=== PATIENT | male | born 1955 | race Caucasian/White ===

== ENCOUNTER 2024-09-05 14:34 | Inpatient (IN) | payer OTHER, MEDICARE ==
[~2024-09-05] VITALS: Ht 177.8 cm; Wt 99.3 kg
[~2024-09-05 14:34] MED LIST: ALLO100T PO; ASPI-1155 PO; GLIP10TA11 PO; LIP80 PO; LOSA1TAB15 PO; METF1000 PO; METO-306 PO; NAPR250T PO; NIFE-76 PO
[2024-09-05 14:47] VITALS: BP_SYST 162; PULSE 79; RESP 22; TEMP 98.3; O2SAT 98
[2024-09-05] MEDS: DEXTROSE 50% JECT 50 ML DISP.SYRIN IVP ONE ×2 (15:50→22:00)
[2024-09-05 15:52] LABS: BASOPHILS % (AUTO) 0.2 % (0.0-2.0); EOSINOPHILS # (AUTO) 0.5 K/uL (0.0-0.4); EOSINOPHILS % (AUTO) 5.2 % (0.0-4.0); HEMATOCRIT 29.8 % (36-54); HEMOGLOBIN 9.6 g/dL (14.0-18.0); LYMPHOCYTES # (AUTO) 0.9 K/uL (1.0-5.5); LYMPHOCYTES % (AUTO) 9.6 % (20.5-51.5); MEAN CORPUSCULAR HEMOGLOBIN 30 pg (27-31); MEAN CORPUSCULAR HGB CONC 32 % (32-36); MEAN CORPUSCULAR VOLUME 92 fL (79.0-98.0); MONOCYTES # (AUTO) 0.6 K/uL (0.0-1.0); MONOCYTES % (AUTO) 6.5 % (1.7-9.3); NEUTROPHILS # (AUTO) 7.2 K/uL (1.8-7.7); NEUTROPHILS % (AUTO) 78.5 % (40.0-70.0); PLATELET COUNT (AUTO) 184 K/uL (130-430); RED BLOOD CELL COUNT(AUTO) 3.22 MIL/uL (4.2-6.2); RED CELL DISTRIBUTION WIDTH 13.5 % (9.0-15.0); WHITE BLOOD COUNT (AUTO) 9.2 K/uL (4.8-10.8)
[2024-09-05 16:06] LABS: BILIRUBIN,URINE NEGATIVE (NEGATIVE); BLOOD, URINE NEGATIVE (NEGATIVE); COLOR,URINE YELLOW (YELLOW); GLUCOSE,URINE NEGATIVE (NEGATIVE); KETONES,URINE NEGATIVE (NEGATIVE); LEUKOCYTE ESTERASE ,URINE 2+ (NEGATIVE); NITRITE, URINE POSITIVE (NEGATIVE); PROTEIN URINE NEGATIVE (NEGATIVE); UROBILINOGEN,URINE 0.2 (0.2-1.0)
[2024-09-05 16:10] LABS: INR 1.2 (0.80-1.20); PROTHROMBIN TIME 12.7 SECS (9.5-12.5)
[2024-09-05 16:18] LABS: ANION GAP -2 (5-15); CALCIUM 9.6 mg/dL (8.4-11.0); CHLORIDE 98 mmol/L (98-107); CREATINE KINASE, TOTAL 40 U/L (39-308); CREATININE 1.42 mg/dL (0.55-1.30); GFR AFRICAN AMERICAN 64 mL/min (>90); GLUCOSE 61 mg/dL (74-106); POTASSIUM 3.5 mmol/L (3.5-5.1); SODIUM SERUM 141 mmol/L (136-145); UREA NITROGEN, BLOOD 29 mg/dL (8-21)
[2024-09-05 16:22] LABS: GFR NON AFRICAN-AMERICAN 53 mL/min (>90)
[2024-09-05 16:23] LABS: CARBON DIOXIDE 45 mmol/L (23-29)
[2024-09-05] MEDS: FUROSEMIDE 40 MG/4 ML VIAL IVP ONE (17:16)
[2024-09-05 17:26] LABS: BACTERIA,URINE MANY /HPF (None Seen); CLARITY/URINE HAZY (CLEAR); RBC,URINE 0-3 /HPF (0-3); WBC,URINE 20-50 /HPF (0-3)
[2024-09-05 17:28] LABS: MUCUS,URINE None Seen /LPF (None Seen)
[2024-09-05 17:29] LABS: URINE AMORPHOUS URATE 1+ /HPF (None Seen)
[2024-09-05] MEDS: cefTRIAXone 1 GM in D5W 50 ML IV ONE (18:45)
[2024-09-05] MEDS ORDERED: ACETAMINOPHEN 325 MG TABLET PO PRN (19:15)
[2024-09-05] MEDS ORDERED: ONDANSETRON HCL 4 MG/2 ML VIAL IVP PRN (19:15)
[2024-09-05] MEDS ORDERED: cefTRIAXone 1 GM VIAL ONE (19:22)
[2024-09-05] MEDS: DEXTROSE 10%-WATER 500 ML IV SCH (19:45)
[2024-09-05 20:09] LABS: BLOOD GAS PCO2 67.7 mmHg (35.0-48.0); BLOOD GAS PH 7.373 (7.350-7.450)
[2024-09-05 20:10] LABS: ALLEN'S TEST POSITIVE (P); BLOOD GAS BASE EXCESS 11.1 mmol/L (-2.0-3.0); BLOOD GAS HCO3 38.5 mmol/L (21.0-28.0); BLOOD GAS PO2 96.9 mmHg (83.0-108.0)
[2024-09-05] MEDS ORDERED: SITA100T11 PO (20:10)
[2024-09-05] MEDS ORDERED: APIX5TAB PO (20:10)
[2024-09-05] MEDS ORDERED: FURO40TA5 PO (20:10)
[2024-09-05] MEDS ORDERED: LOSA50TA28 PO (20:10)
[2024-09-05] MEDS ORDERED: ROSU20TA73 PO (20:10)
[2024-09-05] MEDS ORDERED: GLIP5TAB26 PO (20:10)
[2024-09-05] MEDS ORDERED: IBUP-1970 PO (20:10)
[2024-09-05 20:11] LABS: FRACTIONATED INSPIRED OXYGEN 0.32 % (0.21-100.00)
[2024-09-05 20:17] VITALS: BP_SYST 148; PULSE 55; O2SAT 99
[2024-09-05] MEDS ORDERED: SOTA120T PO (20:18)
[2024-09-05] MEDS ORDERED: NIFE-129 PO (20:18)
[2024-09-05] MEDS ORDERED: ACET250T28 PO (20:18)
[2024-09-05] MEDS ORDERED: TAMS0.4C96 PO (20:18)
[2024-09-05] MEDS ORDERED: FENO200C25 PO (20:18)
[2024-09-05] MEDS: AZITHROMYCIN 500 MG in NS 250 ML IV ONE (21:00)
[2024-09-05] MEDS ORDERED: AZITHROMYCIN 500 MG/VIAL (ZITHROMAX) IV ONE (21:20)
[2024-09-05] MEDS ORDERED: DEXTROSE 50% JECT 50 ML DISP.SYRIN ONE (21:52)
[2024-09-05] MEDS: APIXABAN 2.5 MG TABLET PO SCH (22:30)
[2024-09-05] MEDS: ATORVASTATIN 20 MG TABLET PO SCH (22:30)
[2024-09-05] MEDS: APIXABAN 2.5 MG TABLET ONE (22:32)
[2024-09-05] MEDS: ATORVASTATIN 20 MG TABLET ONE (22:32)
[2024-09-06] MEDS: DEXTROSE 50% JECT 50 ML DISP.SYRIN IVP PRN (03:30)
[2024-09-06] MEDS ORDERED: DEXTROSE 50% JECT 50 ML DISP.SYRIN ONE (03:36)
[2024-09-06 05:10] LABS: BASOPHILS % (AUTO) 0.3 % (0.0-2.0); EOSINOPHILS # (AUTO) 0.5 K/uL (0.0-0.4); EOSINOPHILS % (AUTO) 5.9 % (0.0-4.0); HEMATOCRIT 28.9 % (36-54); HEMOGLOBIN 9.1 g/dL (14.0-18.0); LYMPHOCYTES # (AUTO) 0.9 K/uL (1.0-5.5); LYMPHOCYTES % (AUTO) 10.1 % (20.5-51.5); MEAN CORPUSCULAR HEMOGLOBIN 29 pg (27-31); MEAN CORPUSCULAR HGB CONC 31 % (32-36); MEAN CORPUSCULAR VOLUME 91 fL (79.0-98.0); MONOCYTES # (AUTO) 0.9 K/uL (0.0-1.0); MONOCYTES % (AUTO) 9.7 % (1.7-9.3); NEUTROPHILS # (AUTO) 6.7 K/uL (1.8-7.7); PLATELET COUNT (AUTO) 174 K/uL (130-430); RED BLOOD CELL COUNT(AUTO) 3.17 MIL/uL (4.2-6.2); RED CELL DISTRIBUTION WIDTH 13.5 % (9.0-15.0); WHITE BLOOD COUNT (AUTO) 9.1 K/uL (4.8-10.8)
[2024-09-06] MEDS: GLUCAGON,HUMAN RECOMBINANT 1 MG VIAL SUBCUT ONE (05:57)
[2024-09-06 06:02] LABS: HEMOGLOBIN A1C 6.6 % (<5.7)
[2024-09-06 06:06] LABS: ALBUMIN 3.4 g/dL (3.4-4.8); CALCIUM 9.2 mg/dL (8.4-11.0); CREATININE 1.07 mg/dL (0.55-1.30); POTASSIUM 3.1 mmol/L (3.5-5.1); THYROID STIMULATING HORMONE 0.31 uIu/mL (0.34-4.82); TOTAL BILIRUBIN 0.3 mg/dL (0.0-1.0); TOTAL PROTEIN, SERUM 7.1 g/dL (6.4-8.3)
[2024-09-06] MEDS ORDERED: HYDROcodone/ACETAMIN 5-325 MG TAB (NORCO/ VICODIN) ONE (06:27)
[2024-09-06] MEDS: HYDROcodone/ACETAMIN 5-325 MG TAB (NORCO/ VICODIN) PO PRN (06:30)
[2024-09-06 09:30] VITALS: BP_SYST 149; PULSE 70; RESP 16; TEMP 97.6; O2SAT 94
[2024-09-06] MEDS ORDERED: KCL 40 mEq in 100 mL (PREMIX) 100 ML IV ONE (09:45)
[2024-09-06 10:30] VITALS: O2SAT 97
[2024-09-06] MEDS: IPRATROPIUM BROM 0.5 MG/2.5 ML VIAL.NEB (ATROVENT) INH PRN (10:34)
[2024-09-06] MEDS: ALBUTEROL SULFATE 0.083% 2.5 MG/3 ML VIAL.NEB INH PRN (10:34)
[2024-09-06] MEDS: METOPROLOL SUCCINATE 50 MG TAB.SR.24H (TOPROL XL) PO SCH (12:01)
[2024-09-06] MEDS: POTASSIUM CHLORIDE 20 MEQ TABLET.ER PO ONE (12:09)
[2024-09-06] MEDS: cefTRIAXone 1 GM in D5W 50 ML IV SCH (12:49)
[2024-09-06] MEDS: HYDROcodone/ACETAMIN 10-325 MG TAB PO PRN (14:10)
[2024-09-06 20:45] VITALS: BP_SYST 137; PULSE 73; RESP 18; TEMP 97; O2SAT 95
[2024-09-06 21:45] VITALS: O2SAT 2
[2024-09-07 01:24] VITALS: BP_SYST 171; PULSE 73; RESP 14; TEMP 98.3; O2SAT 95
[2024-09-07 07:35] VITALS: O2SAT 93
[2024-09-07 07:53] LABS: BLOOD GAS BASE EXCESS 11.2 mmol/L (-2.0-3.0); BLOOD GAS HCO3 38.8 mmol/L (21.0-28.0); BLOOD GAS PCO2 68.9 mmHg (35.0-48.0); BLOOD GAS PH 7.368 (7.350-7.450); BLOOD GAS PO2 68.3 mmHg (83.0-108.0)
[2024-09-07 07:54] LABS: ABG O2 SAT% ESTIMATE 91.4 % (94.0-98.0); ALLEN'S TEST POSITIVE (P)
[2024-09-07 08:21] VITALS: BP_SYST 187; PULSE 84; RESP 18; TEMP 98.7; O2SAT 93
[2024-09-07 08:38] LABS: BASOPHILS # (AUTO) 0.1 K/uL (0.0-0.2); BASOPHILS % (AUTO) 0.5 % (0.0-2.0); EOSINOPHILS # (AUTO) 0.5 K/uL (0.0-0.4); EOSINOPHILS % (AUTO) 5.1 % (0.0-4.0); HEMATOCRIT 29.3 % (36-54); HEMOGLOBIN 9.4 g/dL (14.0-18.0); LYMPHOCYTES # (AUTO) 0.8 K/uL (1.0-5.5); LYMPHOCYTES % (AUTO) 8.1 % (20.5-51.5); MEAN CORPUSCULAR HEMOGLOBIN 29 pg (27-31); MEAN CORPUSCULAR HGB CONC 32 % (32-36); MEAN CORPUSCULAR VOLUME 90 fL (79.0-98.0); MONOCYTES # (AUTO) 1.2 K/uL (0.0-1.0); MONOCYTES % (AUTO) 11.8 % (1.7-9.3); NEUTROPHILS # (AUTO) 7.6 K/uL (1.8-7.7); NEUTROPHILS % (AUTO) 74.5 % (40.0-70.0); PLATELET COUNT (AUTO) 201 K/uL (130-430); RED BLOOD CELL COUNT(AUTO) 3.24 MIL/uL (4.2-6.2); RED CELL DISTRIBUTION WIDTH 13.2 % (9.0-15.0); WHITE BLOOD COUNT (AUTO) 10.2 K/uL (4.8-10.8)
[2024-09-07 08:56] LABS: CALCIUM 9.8 mg/dL (8.4-11.0); CREATININE 0.99 mg/dL (0.55-1.30); POTASSIUM 3.4 mmol/L (3.5-5.1)
[2024-09-07] MEDS: LOSARTAN POTASSIUM 50 MG TABLET (COZAAR) PO SCH (09:15)
[2024-09-07] MEDS: TAMSULOSIN HCL 0.4 MG CAP PO SCH (09:15)
[2024-09-07] MEDS: FUROSEMIDE 40 MG/4 ML VIAL IVP SCH (09:59)
[2024-09-07 11:06] VITALS: BP_SYST 104; PULSE 86; RESP 16; TEMP 98.2; O2SAT 98
[2024-09-07] MEDS: INSULIN LISPRO SLIDING SCALE 100 UNITS/ML, 3 ML VIAL (humaLOG) SUBCUT PRN (11:20)
[2024-09-07] MEDS: METHYLPREDNISOLONE SOD SUCC 40 MG/ML VIAL IVP ONE (14:41)
[2024-09-07 16:25] VITALS: BP_SYST 170; PULSE 69; RESP 20; TEMP 98.2; O2SAT 94
[2024-09-07] MEDS: POTASSIUM CHLORIDE 20 MEQ/PKT PACKET PO ONE (19:04)
[2024-09-07 20:00] VITALS: BP_SYST 162; PULSE 116; RESP 20; TEMP 99; O2SAT 94
[2024-09-07] MEDS: LORazepam 2 MG/ML VIAL IVP PRN (21:26)
[2024-09-07] MEDS: METHYLPREDNISOLONE SOD SUCC 40 MG/ML VIAL IVP SCH (21:27)
[2024-09-08] VITALS (8 sets, daily range): BP systolic 148–176; PULSE 76–88; RESP 14–20; TEMP 97.6–98.4; O2SAT 94–98
[2024-09-08] MEDS: traZODone HCL 50 MG TABLET (DESYREL) PO PRN (00:59)
[2024-09-08 08:41] LABS: BASOPHILS % (AUTO) 0.3 % (0.0-2.0); EOSINOPHILS % (AUTO) 0.1 % (0.0-4.0); HEMATOCRIT 32.7 % (36-54); HEMOGLOBIN 10.4 g/dL (14.0-18.0); LYMPHOCYTES # (AUTO) 1.3 K/uL (1.0-5.5); MEAN CORPUSCULAR HEMOGLOBIN 29 pg (27-31); MEAN CORPUSCULAR HGB CONC 32 % (32-36); MEAN CORPUSCULAR VOLUME 90 fL (79.0-98.0); MONOCYTES % (AUTO) 7.7 % (1.7-9.3); NEUTROPHILS # (AUTO) 10.9 K/uL (1.8-7.7); NEUTROPHILS % (AUTO) 81.9 % (40.0-70.0); PLATELET COUNT (AUTO) 237 K/uL (130-430); RED BLOOD CELL COUNT(AUTO) 3.64 MIL/uL (4.2-6.2); RED CELL DISTRIBUTION WIDTH 13.3 % (9.0-15.0); WHITE BLOOD COUNT (AUTO) 13.3 K/uL (4.8-10.8)
[2024-09-08 09:10] LABS: ALBUMIN 3.4 g/dL (3.4-4.8); CALCIUM 10.2 mg/dL (8.4-11.0); CREATININE 1.01 mg/dL (0.55-1.30); POTASSIUM 4.1 mmol/L (3.5-5.1); TOTAL BILIRUBIN 0.7 mg/dL (0.0-1.0); TOTAL PROTEIN, SERUM 7.3 g/dL (6.4-8.3)
[2024-09-08] MEDS ORDERED: ALBUTEROL SULFATE 0.083% 2.5 MG/3 ML VIAL.NEB INH PRN (09:45)
[2024-09-08] MEDS: hydrALAZINE HCL 20 MG/ML VIAL IVP PRN (10:13)
[2024-09-09] VITALS (7 sets, daily range): BP systolic 140–172; PULSE 54–70; RESP 18–20; TEMP 97.3–98.4; O2SAT 96–99
[2024-09-09] MEDS: BISACODYL 5 MG TABLET.DR (DULCOLAX) PO ONE (05:03)
[2024-09-09 10:51] LABS: BASOPHILS % (AUTO) 0.3 % (0.0-2.0); EOSINOPHILS % (AUTO) 0.1 % (0.0-4.0); HEMOGLOBIN 9.6 g/dL (14.0-18.0); LYMPHOCYTES # (AUTO) 0.8 K/uL (1.0-5.5); MEAN CORPUSCULAR HEMOGLOBIN 29 pg (27-31); MEAN CORPUSCULAR HGB CONC 32 % (32-36); MEAN CORPUSCULAR VOLUME 90 fL (79.0-98.0); MONOCYTES # (AUTO) 0.9 K/uL (0.0-1.0); MONOCYTES % (AUTO) 7.2 % (1.7-9.3); NEUTROPHILS # (AUTO) 10.3 K/uL (1.8-7.7); NEUTROPHILS % (AUTO) 85.4 % (40.0-70.0); PLATELET COUNT (AUTO) 252 K/uL (130-430); RED BLOOD CELL COUNT(AUTO) 3.33 MIL/uL (4.2-6.2); RED CELL DISTRIBUTION WIDTH 13.7 % (9.0-15.0)
[2024-09-09 11:09] LABS: ALBUMIN 3.3 g/dL (3.4-4.8); CALCIUM 10.4 mg/dL (8.4-11.0); CREATININE 1.23 mg/dL (0.55-1.30); POTASSIUM 3.8 mmol/L (3.5-5.1); TOTAL BILIRUBIN 0.5 mg/dL (0.0-1.0); TOTAL PROTEIN, SERUM 7.2 g/dL (6.4-8.3)
[2024-09-09] MEDS ORDERED: IPRA4AER INH (11:36)
[2024-09-09] MEDS ORDERED: LEVO-62 PO (11:57)
[2024-09-10 01:06] LABS: CORTISOL (SERUM) 23.2 ug/dL (6.2-19.4); INSULIN 6.6 uIU/mL (2.6-24.9)
== END 2024-09-09 16:40 | DRG 871 ==
LOC: SED 14:34 → STU 17:30 → SMU 09-08 17:17
PROVIDERS: ADMIT Internal Medicine; ATTEND Internal Medicine
DX: A41.9 Sepsis, unspecified organism (principal); I50.33 Acute on chronic diastolic (congestive) heart failure; J96.21 Acute and chronic respiratory failure with hypoxia; J96.22 Acute and chronic respiratory failure with hypercapnia; N17.0 Acute kidney failure with tubular necrosis; N39.0 Urinary tract infection, site not specified; E66.2 Morbid (severe) obesity with alveolar hypoventilation; J44.9 Chronic obstructive pulmonary disease, unspecified; D64.9 Anemia, unspecified; I11.0 Hypertensive heart disease with heart failure; E11.649 Type 2 diabetes mellitus with hypoglycemia without coma; E87.6 Hypokalemia; Z79.899 Other long term (current) drug therapy; Z88.8 Allergy status to other drugs, medicaments and biological substances; Z68.31 Body mass index [BMI] 31.0-31.9, adult
CPT/HCPCS: 36415; 36600; 71045; 80048; 80053; 80061; 81000; 81001; 81015; 82533; 82550; 82803; 82947; 82948; 83037; 83525; 83605; 83880; 84443; 84484; 84681; 85025; 85610; 85730; 87040; 87086; 87186; 93005; 93306; 94070; 94640; 94760; 97110-GP; 97116-GP; 97530-GP; 99285; G0378; J0360; J0456; J0696; J1030; J1610; J1940; J2060; J7050; J7060